=== PATIENT | female | born 1980 | race Caucasian/White ===

== ENCOUNTER 2019-09-04 12:36 | Outpatient (CLI) | payer SELFPAY ==
--- NOTE | 2019-09-04 12:47 | XR_ITS ---
WS: [id number] KU, 09/04/2019 Clinical Data: CONSTIPATION Comparison: None. Findings: There are calcifications overlying the inferior aspect of the left kidney. The bowel gas pattern show s no dilated loops of bowel. No abnormal intra-abdominal masses are seen. No evidence of obstruction is seen. There is not a significant amount of fecal material in the colon. There are clips in the pelvis from a tubal ligation. The bones of the lower thorax, lumbar spine, pelvis and hips are normal. XR/XR KUB [id number] Impression: 1. Calcifications overlying inferior aspect of left kidney. 2. No significant amount of fecal material in the colon.
== END 2019-09-04 12:37 | disposition home or self-care (01) ==
PROVIDERS: PCP Nurse Practitioner Family; Visit Provider Nurse Practitioner Family
DX: N28.89 Other specified disorders of kidney and ureter (principal); R10.9 Unspecified abdominal pain; K59.00 Constipation, unspecified
CPT/HCPCS: 74018

== ENCOUNTER 2021-01-17 12:13 | Emergency (ER) | payer SELFPAY ==
[2021-01-17 12:52] VITALS: BP 116/70; PULSE 81; RESP 20; TEMP 37.2; O2SAT 99; BMI 18.8
--- NOTE | 2021-01-17 13:03 | XR_ITS ---
WS: [id number] XR chest 1V portable [id number] REASON FOR EXAM: COVID FINDINGS: Increased density overlying the mid inferior left lung field is thought to represent overlapping norm al structures accentuated by the pectus deformity. A lateral view of the chest would be helpful as cl inically warranted or if a CT of the chest is not planned. No other significant chest abnormality is noted. XR/XR chest 1V portable [id number] IMPRESSION: Increased density over the left chest as above.
--- NOTE | 2021-01-17 15:31 | CT_ITS ---
WS: [id number] CT abdomen pelvis w con* [id number] REASON FOR EXAM: rt flank pain. h/o stones. IV CONTRAST ADMINISTERED: 75 mL of Omnipaque 300. TOTAL EXAM DLP: 1198.[address] scans at [facility] use at least one of these dose optimization techniques: automat ed exposure control; mA and/or kV adjustment per patient size (includes targeted exams where dose is matched to clinical indication); or iterative reconstruction. FINDINGS: ABDOMEN: The liver, spleen, pancreas, and gallbladder are unremarkable. The adrenal glands are within normal limits. KUB 09/04/2019 demonstrated 3 calculi in the lower pole of the left kidney. Today's examination also d emonstrates 3 calculi in the lower pole of the left kidney. No renal calculi on the right. The left c ollecting system is normal. The right collecting system demonstrates some dilatation of the renal pel vis which is thought to be secondary to the pelvis being extrarenal and mild ureteral pelvic junction stenosis. No right or left abdominal ureteral calculus is identified. No abdominal mass, adenopathy, free fluid, or focal fluid collection. No bowel abnormality. Normal appendix. PELVIS: No distal ureteral or bladder calculus. No mass, adenopathy, focal fluid, or free fluid identified. Previous tubal ligation. Subcentimeter cysts in both ovaries. Uterus is unremarkable. CT/CT abdomen pelvis w con* [id number] IMPRESSION: No acute abdominal or pelvic abnormality.
[2021-01-17] MEDS: iohexol 300 mg/mL 100 mL Btl IV (15:50)
[2021-01-17 16:01] LABS: Basophils % 0.5 %; Eosinophils % 0.3 %; Hematocrit 43.7 % (37.0-47.0); Hemoglobin 14.8 g/dL (11.5-15.3); Lymphocytes # 1.5 10^3/uL (0.8-4.8); Lymphocytes % 39.5 %; Mean Corpuscular HGB Conc 33.9 g/dL (30.0-36.0); Mean Corpuscular Hemoglobin 30.2 pg (28.0-34.0); Mean Corpuscular Volume 89.2 fL (81-99); Mean Platelet Volume 12.9 fL (7.4-10.4); Monocytes # 0.3 10^3/uL (0.2-0.9); Monocytes % 8.3 %; Neutrophils # 1.91 10^3/uL (1.8-7.7); Neutrophils % 51.4 %; Nucleated Red Blood Cells % 0 %; Platelet Count 184 10^3/cmm (130-400); Positive M 1; Red Cell Distribution Width 11.8 % (12.1-15.1); White Blood Count 3.7 10^3/uL (4.0-10.0)
[2021-01-17 16:09] LABS: HCG, Serum Qual Negative (Negative)
[2021-01-17 16:27] LABS: Alanine Aminotransferase 20 U/L (0-33); Albumin Level 4.8 g/dL (3.5-5.2); Alkaline Phosphatase 61 IU/L (35-105); Anion Gap 16.4 (5-19); Aspartate Amino Transferase 15 U/L (0-32); Blood Urea Nitrogen 5 mg/dL (6-20); Calcium 9.5 mg/dL (8.5-10.5); Carbon Dioxide 26 mmol/L (22-29); Chloride 102 mmol/L (98-107); Globulin 2.8 g/dL (1.3-4.6); Glomerular Filtration Rate 136.6 mL/min (90-130); Glucose 86 mg/dL (65-115); Lipase 47 U/L (13-60); Osmolality Calculated 289 mOsm/kg (285-295); Potassium 3.4 mmol/L (3.5-5.1); Sodium 141 mmol/L (136-145); Total Bilirubin 0.8 mg/dL (0.15-1.2); Total Protein 7.6 g/dL (6.6-8.7)
[2021-01-17 16:28] LABS: Lactate (Lactic Acid level) 1.2 mmol/L (0.5-2.2)
[2021-01-17 17:13] VITALS: BP 106/65; PULSE 56; O2SAT 99
[2021-01-17 17:51] LABS: Add Urine Microscopic? NO; Charge for UA Resulting for Rev
[2021-01-17 17:55] LABS: Bilirubin Urine Neg (Negative); Blood Urine Neg (Negative); Glucose Urine UA Norm (Normal); Ketones Urine 2+ (Negative); Leukocyte Esterase Urine Negative (Negative); Nitrate Urine Negative (Negative); Protein Urine Trace (Negative); Sulfosalicylic Acid Urine Positive (Negative); Urine Appearance Clear (CLEAR); Urine Color Yellow (Yellow); Urobilinogen Urine 1 mg/dL (Negative); pH Urine 9 (5-7)
[2021-01-17 18:11] VITALS: BP 116/65; PULSE 57; O2SAT 97
--- NOTE | 2021-01-17 18:36 | W.ED.COVID ---
HPI - COVID General: Chief Complaint: COVID symptoms Stated Complaint: COVID + Time Seen by Provider: 01/17/21 15:03 Triage information: Has fever, cough or shortness of breath. No known COVID + exposure last 14 days History of Present Illness: HPI Narrative: The patient is a 41-year-old female sent to the ER by her primary care physician. Lou complains of right flank pain radiating to her groin and dark-colored stools. She says she has not been eating or drinking much over the past 3 or 4 days and has been having this belly pain off and on for the past year, worsening for the past month, and even becoming severe over the past few days. She has been seen but has not had a belly CT and her primary care physician request that specifically. Also she reports she has dark-colored stools and has not been eating much. She does have a history of hemorrhoids however has not had any upper or lower GI bleeding in the past. She also has been suffering from Covid. Her symptoms started nearly 3 weeks ago and she says she is doing somewhat better from that aspect but she is concerned about the belly pain. She is breathing quite well satting 99% on room air and in no respiratory distress. MD complaint: known COVID positive COVID 19 common symptoms: positive nausea; negative non-productive cough, productive cough, dyspnea, fatigue, headache(s), throat pain, nasal congestion, vomiting or diarrhea COVID 19 other sytmptoms: negative chest pain or confusion COVID Results: No Data to Display Review of Systems General: Reports: 10 or more systems reviewed and unremarkable except in HPI and below Const: Denies: fatigue Eyes: Denies: change in vision, blurry vision or eye redness ENMT: Denies: throat pain, swelling of lips/tongue, ear or mastoid pain or nasal congestion Card: Denies: chest pain, palpitations, irregular heart rhythm, edema, dyspnea on exertion or orthopnea Resp: Denies: dyspnea, productive cough or non-productive cough GI: Reports: nausea; Denies: abdominal pain, vomiting, diarrhea or GI cramping : Reports: flank pain; Denies: difficulty voiding, urinary frequency or urinary urgency Musc: Denies: neck pain, back pain, extremity pain, joint pain, joint redness, limited range of motion or muscle weakness Skin/Breast: Denies: rash, pruritus, erythema, skin pain or skin tenderness Neuro: Denies: headache(s), numbness in extremities, weakness in extremities, sensory changes, difficulty walking, dizziness, confusion or Slurred speech present Psych: Denies: anxiety or depression Endo: Denies: polyuria All/Imm: Denies: urticaria, throat swelling or tongue swelling Physical Exam Const: COMMON NORMALS: no acute distress, average body habitus, patient oriented x3, no limitations, healthy appearing, alert and well nourished GENERAL APPEARANCE: cooperative, comfortable, well kempt and well developed ORIENTATION/CONSCIOUSNESS: Yes awake, Yes oriented to person, Yes oriented to place and Yes oriented to time HENMT: COMMON NORMALS: normocephalic, external ears normal and Normal external nose present HEAD & SCALP: normal to inspection and normocephalic NOSE: Normal external nose present EXTERNAL EAR: Yes external ears normal MOUTH: Normal oral and palatal mucosa present THROAT: posterior oropharynx normal Eye: COMMON NORMALS: Equal, round and reactive pupils present and EOMs intact bilaterally GENERAL EYE: appearance normal, both eyes and all related structures PUPIL: Yes Equal, round and reactive pupils present Neck/C-Spine: COMMON NORMALS: full ROM, no lymphadenopathy, no meningeal signs and no JVD GENERAL: Yes normal visual inspection Lymph: LYMPHATIC: no lymphadenopathy noted Chest: COMMONS NORMALS: normal inspection of the chest and normal palpation of entire chest wall Resp: COMMON NORMALS: normal respiratory effort, No retractions, No use of accessory muscles, clear to auscultation bilaterally and percussion normal EFFORT & INSPECTION: Yes able to speak in complete sentences AUSCULTATION: clear to auscultation bilaterally PERCUSSION: percussion normal Cardio: COMMON NORMALS: no JVD, regular rate, regular rhythm, S1 normal heart sound present, S2 normal heart sound present and Peripheral pulses 2+ throughout RATE: regular rate RHYTHM: regular rhythm HEART SOUNDS: S1 normal heart sound present and S2 normal heart sound present PERIPHERAL PULSES: Peripheral pulses 2+ throughout GI: COMMON NORMALS: Normal to inspection, nondistended, normoactive bowel sounds present, Soft to palpation, non-tender and no masses INSPECTION: Yes normal to inspection PALPATION: Yes Soft to palpation : COMMON NORMALS: Yes no CVA tenderness BLADDER/KIDNEY EXAM: Yes no CVA tenderness Back/Pelvis: COMMON NORMALS: no CVA tenderness, thoracic and lumbar spine normal to inspection, no thoracic nor lumbar tenderness and thoraco-lumbar ROM normal Extremity: COMMON NORMALS: normal to inspection, full ROM, capillary refill normal, no joint enlargement and no pedal edema GENERAL: Yes normal exam except as noted Neuro: COMMON NORMALS: patient oriented x3, CN's II-XII intact bilaterally, moves all extremities, no focal motor deficits, no sensory deficits noted and gait normal SENSORIUM/ORIENTATION: Yes alert, Yes oriented to person, Yes oriented to place and Yes oriented to time MENINGEAL SIGNS: Yes no meningeal signs Psych: COMMON NORMALS: mental status grossly normal, Normal thought process present, cooperative, normal affect and speech normal APPEARANCE: Yes well kempt ATTITUDE: Yes calm SPEECH: Yes normal speech THOUGHT PROCESS: Normal thought process present Skin: COMMON NORMALS: no rashes or lesions noted GENERAL SKIN EXAM: no rashes or lesions noted Course Vital Signs: Vital signs: Vital Signs Temperature 99.0 F 01/17/21 12:52 Pulse Rate 53 L 01/17/21 18:48 Respiratory Rate 16 01/17/21 18:44 Blood Pressure 100/65 01/17/21 18:48 Pulse Oximetry 99 01/17/21 18:48 MDM - COVID MDM Narrative: Medical decision making narrative: Patient came to the ER complaining of right flank pain radiating to her groin. She says she has had this pain which started a year ago and has worsened significantly over the last month and few days. She has been seen for it before but her primary care physician called and requested a CT. CT abdomen pelvis was negative. Her urinalysis was also clear but did have ketones which is consistent with her reduced p.o. intake. She was given Zofran and IV fluids and stable from that standpoint. She also had occult positive blood and does have hemorrhoids though they do not appear to be bleeding. I placed a adult protective caseworker referral to set her up with GI and sent her home on omeprazole prescription. Last is her Covid. She got it a few weeks ago symptomatically and she is feeling much better. She seems to be recovering well from that. She will return to the ER with worsening symptoms otherwise follow-up with GI and her primary care physician in a few days. Lab Data: Labs: Lab Results 01/17/21 01/17/21 01/17/21 Range/Units 15:40 15:40 15:40 WBC 3.7 L (4.0-10.0) 10^3/ uL RBC 4.90 (4.1-5.3) 10^6/u L Hgb 14.8 (11.5-15.3) g/dL Hct 43.7 (37.0-47.0) % MCV 89.2 (81-99) fL MCH 30.2 (28.0-34.0) pg MCHC 33.9 (30.0-36.0) g/dL RDW 11.8 L (12.1-15.1) % Plt Count 184 (130-400) 10^3/c mm MPV 12.9 H (7.4-10.4) fL Neut % (Auto) 51.4 % Lymph % (Auto) 39.5 % Emmons % (Auto) 8.3 % Eos % (Auto) 0.3 % Baso % (Auto) 0.5 % Neut # (Auto) 1.91 (1.8-7.7) 10^3/u L Lymph # (Auto) 1.5 (0.8-4.8) 10^3/u L Emmons # (Auto) 0.3 (0.2-0.9) 10^3/u L Eos # (Auto) 0.0 (0.0-0.8) 10^3/u L Baso # (Auto) 0.0 (0.0-0.1) 10^3/u L Nucleated RBC % (a uto) 0 % Nucleated RBCs # 0.0 /100WBC Sodium 141 (136-145) mmol/L Potassium 3.4 L (3.5-5.1) mmol/L Chloride 102 (98-107) mmol/L Carbon Dioxide 26 (22-29) mmol/L Anion Gap 16.4 (5-19) BUN 5 L (6-20) mg/dL Creatinine 0.5 (0.5-0.9) mg/dL GFR Calculation 136.6 H (90-130) mL/min Glucose 86 (65-115) mg/dL Calculated Osmolal ity 289 (285-295) mOsm/k g Lactate 1.2 (0.5-2.2) mmol/L Calcium 9.5 (8.5-10.5) mg/dL Total Bilirubin 0.8 (0.15-1.2) mg/dL AST 15 (0-32) U/L ALT 20 (0-33) U/L Alkaline Phosphata se 61 (35-105) IU/L Total Protein 7.6 (6.6-8.7) g/dL Albumin 4.8 (3.5-5.2) g/dL Globulin 2.8 (1.3-4.6) g/dL Lipase 47 (13-60) U/L HCG, Qual (Negative) Urine Color (Yellow) Urine Appearance (CLEAR) Urine pH (5-7) Ur Specific Gravit y (1.005-1.030) Urine Protein (Negative) Urine Glucose (UA) (Normal) Urine Ketones (Negative) Urine Blood (Negative) Urine Nitrate (Negative) Urine Bilirubin (Negative) Prot Sulfosalicyli c Acd (Negative) Urine Urobilinogen (Negative) mg/dL Ur Leukocyte Kassi ase (Negative) 01/17/21 01/17/21 Range/Units 15:40 17:42 WBC (4.0-10.0) 10^3/ uL RBC (4.1-5.3) 10^6/u L Hgb (11.5-15.3) g/dL Hct (37.0-47.0) % MCV (81-99) fL MCH (28.0-34.0) pg MCHC (30.0-36.0) g/dL RDW (12.1-15.1) % Plt Count (130-400) 10^3/c mm MPV (7.4-10.4) fL Neut % (Auto) % Lymph % (Auto) % Emmons % (Auto) % Eos % (Auto) % Baso % (Auto) % Neut # (Auto) (1.8-7.7) 10^3/u L Lymph # (Auto) (0.8-4.8) 10^3/u L Emmons # (Auto) (0.2-0.9) 10^3/u L Eos # (Auto) (0.0-0.8) 10^3/u L Baso # (Auto) (0.0-0.1) 10^3/u L Nucleated RBC % (a uto) % Nucleated RBCs # /100WBC Sodium (136-145) mmol/L Potassium (3.5-5.1) mmol/L Chloride (98-107) mmol/L Carbon Dioxide (22-29) mmol/L Anion Gap (5-19) BUN (6-20) mg/dL Creatinine (0.5-0.9) mg/dL GFR Calculation (90-130) mL/min Glucose (65-115) mg/dL Calculated Osmolal ity (285-295) mOsm/k g Lactate (0.5-2.2) mmol/L Calcium (8.5-10.5) mg/dL Total Bilirubin (0.15-1.2) mg/dL AST (0-32) U/L ALT (0-33) U/L Alkaline Phosphata se (35-105) IU/L Total Protein (6.6-8.7) g/dL Albumin (3.5-5.2) g/dL Globulin (1.3-4.6) g/dL Lipase (13-60) U/L HCG, Qual Negative (Negative) Urine Color Yellow (Yellow) Urine Appearance Clear (CLEAR) Urine pH 9 H (5-7) Ur Specific Gravit y 1.010 (1.005-1.030) Urine Protein Trace (Negative) Urine Glucose (UA) Norm (Normal) Urine Ketones 2+ H (Negative) Urine Blood Neg (Negative) Urine Nitrate Negative (Negative) Urine Bilirubin Neg (Negative) Prot Sulfosalicyli c Acd Positive (Negative) Urine Urobilinogen 1 H (Negative) mg/dL Ur Leukocyte Kassi ase Negative (Negative) COVID Results: No Data to Display Discharge Plan Discharge Patient Disposition: Home Clinical Impression: Acute flank pain, Acute dehydration, Fecal occult blood test positive Condition: Stable Prescriptions: New omeprazole 40 mg capsule,delayed release(DR/EC) 40 mg PO DAILY 28 Days Qty: 28 RF: 0 ondansetron 4 mg tablet,disintegrating 4 mg PO Q8H 4 Days Qty: 12 RF: 0 No Action levetiracetam 500 mg tablet 500 mg PO BID RF: 0 meloxicam 15 mg tablet 15 mg PO DAILY RF: 0 ondansetron 4 mg tablet,disintegrating 4 mg PO Q8H PRN (Reason: NAUSEA/VOMITING) RF: 0 Benadryl 25 mg Capsule 25 mg PO Q6H PRN (Reason: Allergy Symptoms) RF: 0 Discharge Orders: Discharge ED (Routine); Ordered 01/17/21 Ordered By: Chilango Tong Referrals: Светлана Riggs FNP [Primary Care Provider] - Patient Instructions: Abdominal Pain (ED), Opioid Safety Activity Restrictions/Additional Instructions: You have had right flank pain for unknown reason. Your urine is clean and shows you may be dehydrated with ketones in it. You have been given IV fluids and Zofran which has helped your nausea and hydration status. Please follow-up with your primary care physician in a few days. I have placed a case management consult to help you get a GI referral to help with the occult blood found in your stool today. Of note you do have hemorrhoids but it does not appear that they are not bleeding at the moment though it is unclear. student accounts manager should call you in a couple days to help set up the appointment. If you do not hear from us call us back or talk with your primary care physician in a few days. Return to the ER at anytime with worsening symptoms. You may take the Zofran to help with your nausea at home and the omeprazole should help with heartburn and possibly with the blood in your stool. Coding Level of Care Code ED Wheel Press Operator for Mely Peralta
[2021-01-17] MEDS: sodium chloride 0.9% 1,000 ML 999 ML IV (18:42)
[2021-01-17] MEDS: ondansetron 2 mg/ML SDV 2 mL 4 MG IVP (18:43)
[2021-01-17 18:44] VITALS: BP 100/65; PULSE 71; RESP 16; O2SAT 100
[2021-01-17 18:48] VITALS: BP 100/65; PULSE 53; O2SAT 99
[2021-01-17] MEDS: pantoprazole 40 mg SDV IVP (19:22)
[2021-01-17 19:42] VITALS: BP 97/58; PULSE 50; RESP 18; O2SAT 100
--- NOTE | 2021-01-18 10:06 | DCPLANNER ---
marketing production manager had message to schedule a follow up appointment for patient with general surgery. marketing production manager emailed patients information to [facility]. Patients information would be printed and reviewed. Clinic will call patient with appointment information.
--- NOTE | 2021-01-25 14:14 | DCPLANNER ---
Patient has a follow up appointment scheduled for Saturday, February 06, 2021 at 9:20 with at general surgery. Clinic will call patient with appointment information.
--- NOTE | 2021-02-10 12:43 | DCPLANNER ---
Patient had a follow up appointment scheduled for 02.06.21 with general surgery - patient did attend appointment.
== END 2021-01-17 20:00 | disposition home or self-care (01) ==
PROVIDERS: Physician Assistant; Emergency Provider Family Medicine; PCP Nurse Practitioner Family
DX: R10.9 Unspecified abdominal pain (principal); E86.0 Dehydration; K92.1 Melena
CPT/HCPCS: 71045; 74177; 80053; 81003; 83605; 83690; 84703; 85025; 96361; 96374; 96375; 99284; C9113; J2405; J7030; Q9967

== ENCOUNTER 2021-04-10 07:14 | Outpatient (CLI) | payer SELFPAY ==
--- NOTE | 2021-04-10 07:22 | US_ITS ---
WS: [id number] ULTRASOUND PELVIS TECHNIQUE: Transabdominal and transvaginal. ULTRASOUND PELVIS TECHNIQUE: Transabdominal. CLINICAL INFORMATION: IRREGULAR MENSES LMP: March 24, 2021 : No. COMPARISON: None. FINDINGS: Uterus Orientation: Retroverted Size: 8.2 cm x 7.2 cm x 5.6 cm. Masses: None. Cervix: Long and closed Endometrium: Normal. Endometrium thickness: 1.0 cm. Adnexa: Right ovarian corpus luteum cyst measuring 15 x 17 mm Right ovary size: 2.8 cm x 2.1 cm x 2.5 cm. Right ovary volume: 7.6 ccm3. Left ovary size: 2.6 cm x 2.0 cm x 1.5 cm. Left ovary volume: 4.0 ccm3 Free fluid: None. Other findings: None. US/US pelvic with transvaginal IMPRESSION: 1. Retroverted uterus with normal endometrium. 2. Cervix is long and closed. 3. Normal adnexa. 4. No free fluid in the cul-de-sac.
--- NOTE | 2021-04-10 10:09 | MM_ITS ---
WS: [id number] BILATERAL SCREENING DIGITAL MAMMOGRAM WITH CAD HISTORY: SCREENING COMPARISON: None available. Bilateral CC and MLO views submitted. Computer aided detection analyzed. Breast composition: The breasts are heterogeneously dense, which may obscure small masses. No suspici ous masses, microcalcifications or architectural distortion. MM/[place] [id number] IMPRESSION: BI-RADS: 1-Negative FOLLOW UP: 1 Year Follow-up
== END 2021-04-10 07:15 | disposition home or self-care (01) ==
PROVIDERS: PCP Nurse Practitioner Family; Visit Provider Nurse Practitioner Family
DX: Z12.31 Encounter for screening mammogram for malignant neoplasm of breast (principal); N92.6 Irregular menstruation, unspecified; R10.2 Pelvic and perineal pain; N85.4 Malposition of uterus
CPT/HCPCS: 76830; 76856; 77067